=== PATIENT | female | born 1990 | race Caucasian/White ===

== ENCOUNTER 2016-12-04 22:32 | Emergency (ER) | payer OTHER ==
[2016-12-04 22:47] VITALS: BP 133/87
--- NOTE | 2016-12-04 23:01 | ED Physician Documentation ---
PD HPI ABD PAIN - Stated complaint Stated Complaint: ABD PX - Chief complaint Chief Complaint: Abd Pain - History obtained from History obtained from: Patient, Friend - History of Present Illness Timing - onset: Today Timing - details: Abrupt onset, Now resolved Quality: Cramping, Aching Location: RUQ Associated symptoms: Vaginal bleeding. No: Fever, Nausea, Vomiting, Diarrhea, Constipation, Vaginal dc Similar symptoms before: Has not had sx before Recently seen: Not recently seen - Additional information Additional information: Patient is a 26 year old female with no significant past medical history who is presenting to the emergency department for abdominal pain. Patient states that earlier today she had right sided abdominal pain and cramping. it lasted about 30 minutes and went away on its own. Patient states that by the time she got to the emergency department the pain had resolved. Patient states that she is feeling better. Patient denies any vomiting, fever, vaginal discharge and patient states that she has never had sexual intercourse. Patient states that she is currently on her menstrual cycle. Review of Systems Constitutional: denies: Fever, Chills Eyes: reports: Reviewed and negative Ears: reports: Reviewed and negative Nose: reports: Reviewed and negative Throat: reports: Reviewed and negative Cardiac: denies: Chest pain / pressure, Palpitations, Calf pain Respiratory: denies: Dyspnea, Cough, Wheezing GI: reports: Abdominal Pain. denies: Abdominal Swelling, Nausea, Vomiting, Constipation, Diarrhea : reports: Vaginal bleeding. denies: Dysuria, Frequency, Hesitancy PD ED PE NORMAL - Vitals Vital signs reviewed: Yes - General General: Alert and oriented X 3, No acute distress - HEENT HEENT: Atraumatic, PERRL, Pharynx benign - Neck Neck: Supple, no meningeal sign, No JVD - Cardiac Cardiac: RRR, No murmur - Respiratory Respiratory: No respiratory distress, Clear bilaterally - Abdomen Abdomen: Soft, Non distended - Female Female : Pt declined - Derm Derm: Normal color, Warm and dry, No rash - Extremities Extremities: No deformity, No tenderness to palpate, No edema - Neuro Neuro: Alert and oriented X 3, No motor deficit, No sensory deficit, Normal speech - Psych Psych: Normal mood, Normal affect PD ED PE EXPANDED - Abdomen Abdomen: Tender to palpation, Suprapubic. No: Rebound, Guarding Results - Vitals Vitals: Vital Signs - 24 hr 12/04/16 22:44 Temperature 36.1 C L Heart Rate 73 Respiratory 73 H Rate Blood Pressure 133/87 H O2 Saturation 99 Oxygen O2 Source Room air PD MEDICAL DECISION MAKING - ED course Complexity details: reviewed old records, considered differential, d/w patient, d/w family ED course: Patient was seen and examined at bedside. patient stated that her symptoms had resolved and she felt fine. Patient stated that she did not want a work up at this time and that she would return if the symptoms returned. Patient required no further work up and was stable for discharge with outpatient follow up. Departure - Departure Disposition: Home, Self Care Clinical Impression: Abdominal pain Condition: Good Instructions: ED Abdominal Pain Unkn Cause Follow-Up: primary,care provider [Other] - As Needed Comments: It is difficult to say what exactly is causing your pain. It could be your GI tract (gas), menstrual cramping or your gallbladder. You can take motrin or tylenol as needed for pain. You may return to the emergency department at any time as needed for new, worsening or uncontrollable symptoms.
== END 2016-12-04 23:14 | disposition home or self-care (01) ==
LOC: ED 22:32
DX: R10.11 Right upper quadrant pain (principal)
CPT/HCPCS: 99283

== ENCOUNTER 2021-03-06 15:44 | Emergency (ER) | payer OTHER ==
--- NOTE | 2021-03-06 16:31 | ED Physician Documentation ---
History of Present Illness - Stated complaint Stated Complaint: NAUSEA,COUGH,PEREZ - Chief complaint Chief Complaint: General - History obtained from History obtained from: Patient - History of Present Illness Timing: Today Pain level max: 0 Pain level now: 0 - Additonal information Additional information: She is a 30-year-old female who states she has had rhinorrhea, congestion and body aches for the past 2 to 3 days. She was sent here for a Covid test by her command. No fevers. Occasional cough. Denies any possibility of . Nothing makes it better or worse. She is Covid vaccinated Review of Systems Constitutional: denies: Fever, Chills Nose: reports: Rhinorrhea / runny nose Respiratory: reports: Cough : denies: Now EGA Skin: denies: Rash PD PAST MEDICAL HISTORY - Past Medical History Past Medical History: No - Past Surgical History Past Surgical History: No - Allergies Allergies/Adverse Reactions: Allergies Allergy/AdvReac Type Severity Reaction Status Date / Time No Known Drug Allergies Allergy Verified 03/06/21 15:52 - Living Situation Living Arrangement: reports: At home - Social History Does the pt smoke?: No Does the pt have substance abuse?: No PD ED PE NORMAL - Vitals Vital signs reviewed: Yes - General General: Alert and oriented X 3, No acute distress, Well developed/nourished - HEENT HEENT: PERRL, Ears normal, Moist mucous membranes, Pharynx benign - Neck Neck: Supple, no meningeal sign - Cardiac Cardiac: RRR, Strong equal pulses - Respiratory Respiratory: No respiratory distress, Clear bilaterally - Abdomen Abdomen: Soft, Non tender, Non distended - Derm Derm: Warm and dry - Neuro Neuro: Alert and oriented X 3 - Psych Psych: Normal mood, Normal affect Results - Vitals Vitals: Vital Signs - 24 hr 03/06/21 03/06/21 15:50 16:38 Temperature 36.4 C L 36.2 C L Heart Rate 74 59 L Respiratory 14 14 Rate Blood Pressure 140/76 H 113/76 O2 Saturation 100 100 Oxygen O2 Source Room air PD MEDICAL DECISION MAKING - ED course Complexity details: considered differential, d/w patient ED course: Patient is well-appearing, nontoxic. Afebrile. No hypoxia. No respiratory distress. Covid testing was performed. Patient counseled regarding signs and symptoms for which I believe and urgent re-evaluation would be necessary. Patient with good understanding of and agreement to plan and is comfortable going home at this time This document was made in part using voice recognition software. While efforts are made to proofread this document, sound alike and grammatical errors may occur. Departure - Departure Disposition: 01 Home, Self Care Clinical Impression: Viral URI Condition: Good Instructions: ED Viral Syndrome Follow-Up: your,doctor as needed [Other] Comments: Please follow-up with your doctor as needed for further care. Return if you worsen. You have a Covid test pending. You need to self quarantine until the result is done and negative. The results should be done in 24-48 hours. We will call with a positive result, the fastest way to get a negative result for confirmation though is to go to the hospital website at [email or web address], click on the [email or web address] tab and sign up for the patient portal. If any of your friends and/or family need to be tested, they can call the hospital at [phone] for an appointment to have their Covid test. Discharge Date/Time: 03/06/21 16:38
[2021-03-06 16:42] VITALS: BP 113/76
== END 2021-03-06 16:38 | disposition home or self-care (01) ==
LOC: ED 15:44
DX: U07.1 COVID-19 (principal)
CPT/HCPCS: 99282; 99283